=== PATIENT | male | born 1980 | race Caucasian/White ===

== ENCOUNTER 2019-08-01 11:23 | Emergency (ER) | payer MEDICAID, SELFPAY ==
[~2019-08-01] VITALS: Ht 177.8 cm; Wt 74.4 kg
[2019-08-01] MEDS ORDERED: ACET-908 PO (11:31)
[2019-08-01 12:19] LABS: BASO % 0.3 % (0.0-1.0); EOS # 0.1 10^3/uL (0.0-0.5); EOS % 0.6 % (0.0-3.0); HEMATOCRIT 43.3 % (42.0-52.0); LYMPH # 1.4 10^3/uL (1.5-5.0); LYMPH % 14.4 % (24.0-44.0); MEAN CORPUSCULAR HEMOGLOBIN 33.7 pg (27.0-33.0); MEAN CORPUSCULAR HGB CONC 34.6 g/dl (32.0-36.5); MEAN CORPUSCULAR VOLUME 97.3 fl (80.0-96.0); MONO # 0.6 10^3/uL (0.0-0.8); MONO % 6.4 % (0.0-5.0); NEUTROPHILS # 7.5 10^3/uL (1.5-8.5); NEUTROPHILS % 78.1 % (36.0-66.0); PLATELET COUNT, AUTOMATED 283 10^3/uL (150-450); RED BLOOD COUNT 4.45 10^6/uL (4.30-6.10); WHITE BLOOD COUNT 9.6 10^3/uL (4.0-10.0)
[2019-08-01] MEDS ORDERED: KETOROLAC 30 MG/ML VIAL (J1885) IM ONE (12:30)
[2019-08-01 13:08] LABS: CK-MB VALUE MASS 2.3 NG/ML (<3.6); CPK CREATINE PHOSPHOKINASE 184 U/L (39-308); MB/CK RELATIVE INDEX 1.25 (< OR =4); TROPONIN I < 0.02 NG/ML (< 0.10)
[2019-08-01] MEDS ORDERED: AUGM875T28 PO (13:28)
[2019-08-01 13:35] VITALS: BP 131/82
--- NOTE | 2019-08-01 19:07 | ECGEPIP ---
[facility] - ED Test Date: 2019-08-01 Pat Name: ISAIAS BRITTON Department: Room: - Gender: Male [employer] Supervisor: : 1980 Requested By: TERA Phelps PA-C Order Number: [id number] Reading MD: Jose Luis Wallace Measurements Intervals [place] Rate: 77 P: 76 VA: 137 QRS: 48 QRSD: 94 T: 47 QT: 370 QTc: 421 Interpretive Statements SINUS RHYTHM WITH SINUS ARRHYTHMIA POSSIBLE LEFT VENTRICULAR HYPERTROPHY BENIGN EARLY REPOLARIZATION SIMILAR TO 02/07/16 Electronically Signed on 08-01-2019 19:07:25 EDT by Jose Luis Wallace
== END 2019-08-01 13:36 | disposition home or self-care (01) ==
LOC: M ED 11:23
DX: H65.02 Acute serous otitis media, left ear (principal); K02.9 Dental caries, unspecified; R68.84 Jaw pain; I49.3 Ventricular premature depolarization; F17.210 Nicotine dependence, cigarettes, uncomplicated; F41.9 Anxiety disorder, unspecified
CPT/HCPCS: 80047; 82550; 82553; 84484; 85025; 93005; 99284; J1885

== ENCOUNTER 2019-08-28 18:33 | Emergency (ER) | payer OTHER, SELFPAY ==
[~2019-08-28] VITALS: Ht 175.3 cm; Wt 76.1 kg
[2019-08-28 18:33] VITALS: BP 137/79
[~2019-08-28 18:33] MED LIST: ACET-908 PO; AUGM875T28 PO
[2019-08-28] MEDS ORDERED: NORCO, ANEXSIA 5/325MG TABLET (HYDROcodone/ACETAMINOPHEN) PO ONE (21:15)
[2019-08-28] MEDS ORDERED: ceFAZolin SOD 2 GM in IV 1 EA IV ONE (21:15)
[2019-08-28] MEDS ORDERED: ADACEL/BOOSTRIX VACCINE (DIPHTH/PERTUSS/ACELL/TETANUS)0.5ML SYR (90715) IM ONE (21:15)
[2019-08-28] MEDS ORDERED: KEFL500C17 PO (22:53)
[2019-08-28] MEDS ORDERED: NORC1TAB7 PO (22:53)
[2019-08-28] MEDS ORDERED: NORCO 5/325MG TABLET (BULK FOR ED) PO ONE (23:00)
--- NOTE | 2019-08-29 07:52 | REP ---
Clinical: Crush injury. Technique: AP, lateral, bilateral oblique views of the right first digit. Findings: Comminuted fracture of the terminal tuft consistent with crush injury. No subcutaneous emphysema or foreign body identified. Impression: Fracture of the terminal tuft. Electronically Signed by Kee Sparks MD 08/29/2019 07:43 A
== END 2019-08-28 23:25 | disposition home or self-care (01) ==
LOC: M ED 18:33
DX: S62.631B Displaced fracture of distal phalanx of left index finger, initial encounter for open fracture (principal); W23.1XXA Caught, crushed, jammed, or pinched between stationary objects, initial encounter; Y92.69 Other specified industrial and construction area as the place of occurrence of the external cause; Y99.0 Civilian activity done for income or pay; F17.210 Nicotine dependence, cigarettes, uncomplicated
CPT/HCPCS: 73140; 90471; 90715; 96365; 99284; J0690

== ENCOUNTER 2020-11-10 14:10 | Emergency (ER) | payer OTHER, SELFPAY ==
[~2020-11-10] VITALS: Ht 175.3 cm; Wt 84.5 kg
[~2020-11-10 14:10] MED LIST changes: +KEFL500C17 PO; +NORC1TAB7 PO
--- OUTSIDE RECORDS SUMMARY | 2020-11-10 14:18 | CCD ---
Author Author [facility] Organization [facility] Address Unknown Phone Unavailable Support Name Relationship Address Phone [place] [address] UE Next Of Kin Unknown Unavailable FLORIDARACHELLE Next Of Kin [address] [place] [address] SMC* Next Of Kin [address] [place] [address] Gill DONNELLY Next Of Kin [address] [facility] [address] [place] [address] Re-disclosure Warning The records that you are about to access may contain information from federally-assisted alcohol or drug abuse programs. If such information is present, then the following federally mandated warning applies: This information has been disclosed to you from records protected by federal confidentiality rules (42 CFR part 2). The federal rules prohibit you from making any further disclosure of this information unless further disclosure is expressly permitted by the written consent of the person to whom it pertains or as otherwise permitted by 42 CFR part 2. A general authorization for the release of medical or other information is NOT sufficient for this purpose. The Federal rules restrict any use of the information to criminally investigate or prosecute any alcohol or drug abuse patient.The records that you are about to access may contain highly sensitive health information, the redisclosure of which is protected by Article 27-F of the [place] State Public Health law. If you continue you may have access to information: Regarding HIV / AIDS; Provided by facilities licensed or operated by the [facility] Office of Mental Health; or Provided by the [facility] Office for People With Developmental Disabilities. If such information is present, then the following [facility] mandated warning applies: This information has been disclosed to you from confidential records which are protected by state law. State law prohibits you from making any further disclosure of this information without the specific written consent of the person to whom it pertains, or as otherwise permitted by law. Any unauthorized further disclosure in violation of state law may result in a fine or alf sentence or both. A general authorization for the release of medical or other information is NOT sufficient authorization for further disc losure. Family History Family Member Name Family Member Gender Family Member Status Date o f Status Description Data Source(s) Unknown Unknown Encounters Encounter Providers Location Date Indications Data Source(s ) Outpatient 09/11/2019 03:23:00 PM [facility] Insurance Providers Payer name Policy type / Coverage type Policy ID Covered alliance party ID Covered alliance party's relationship to garg Policy Garg Plan Information [employer] SP O UNAVAILABLE UNAVAILA BLE SELF PAY ONLY [id number] SP [id number] WORKERS COMPENSATION [id number] SP [id number] [facility] [id number] SP [id number] MEDICAID HEA [id number] S [id number] MEDICAID [id number] SP [id number] [facility] COMM[facility] PL[facility] MCDO [id number] SP [id number] [facility] O [id number] S [id number] [facility] MANAG[facility] [id number] SP [id number] [facility] Health Maintenance Organization (HMO) Self
--- OUTSIDE RECORDS SUMMARY | 2020-11-10 15:31 | CCD ---
Author Author [facility] Organization [facility] Address Unknown Phone Unavailable Support Name Relationship Address Phone [place] [address] UE Next Of Kin Unknown Unavailable FLORIDARACHELLE Next Of Kin [address] [place] [address] SMC* Next Of Kin [address] [place] [address] Gill DONNELLY Next Of Kin [address] [facility] [address] [place] [address] Re-disclosure Warning The records that you are [...] is protected by Article 27-F of the [place] State Public Health law. If you continue you may have access to information: Regarding HIV / AIDS; Provided by facilities licensed or operated by the [facility] Office of Mental Health; or Provided by the [facility] Office for People With Developmental Disabilities. If such information is present, then the following [facility] mandated warning applies: This information has [...] law may result in a fine or fci sentence or both. A general authorization for the release of medical or other information is NOT sufficient authorization for further disc losure. Family History Family Member Name Family Member Gender Family Member Status Date o f Status Description Data Source(s) Unknown Unknown Insurance Providers Payer name Policy type / Coverage type Policy ID Covered democrat ID Covered democrat's relationship to garg Policy Garg Plan Information SRIDHAR [id number] SP [id number] [place] [employer] SP O UNAVAILABLE UNAVAILA BLE SELF PAY ONLY [id number] SP [id number] OTHER WORKERS COMPENSATION [id number] SP [id number] [facility] [id number] SP [id number] MEDICAID HEA [id number] MEDICAID [id number] SP [id number] [employer] COMMUNITY PLAN MCDHMO [id number] SP [id number] [facility] O [id number] S [id number] [facility] MANAGEMENT [facility] [id number] SP [id number] [facility] Health Maintenance Organization (HMO) Self
[2020-11-10 16:45] VITALS: BP 150/87
== END 2020-11-10 16:57 | disposition home or self-care (01) ==
LOC: M ED 14:10
DX: U07.1 COVID-19 (principal); F17.200 Nicotine dependence, unspecified, uncomplicated

== ENCOUNTER 2022-02-27 22:15 | Emergency (ER) | payer SELFPAY ==
[~2022-02-27] VITALS: Ht 175.3 cm; Wt 81.8 kg
[~2022-02-27 22:15] MED LIST changes: -ACET-908 PO; +ACET-910 PO
[2022-02-27 22:17] VITALS: BP 126/84
== END 2022-02-28 00:15 | disposition left against medical advice (07) ==
LOC: M ED 22:15
DX: Z53.21 Procedure and treatment not carried out due to patient leaving prior to being seen by health care provider (principal)

== ENCOUNTER 2022-09-07 10:27 | Inpatient (IN) | payer SELFPAY ==
[~2022-09-07] VITALS: Ht 175.3 cm; Wt 81.8 kg
[2022-09-07 11:27] LABS: HEMATOCRIT 41.7 % (42.0-52.0); HEMOGLOBIN 14.2 g/dl (13.5-17.5); MEAN CORPUSCULAR HEMOGLOBIN 31.9 pg (27.0-33.0); MEAN CORPUSCULAR HGB CONC 34.1 g/dl (32.0-36.5); MEAN CORPUSCULAR VOLUME 93.7 fl (80.0-96.0); PLATELET COUNT, AUTOMATED 338 10^3/uL (150-450); RED BLOOD COUNT 4.45 10^6/uL (4.30-6.10); WHITE BLOOD COUNT 6.6 10^3/uL (4.0-10.0)
[2022-09-07 12:12] LABS: RSV AMPLIFICATION NEGATIVE (NEGATIVE)
[2022-09-07 12:17] LABS: ACETAMINOPHEN LEVEL < 2.0 UG/ML (10.0-30.0); ALBUMIN 3.9 GM/DL (3.2-5.2); ALT/SGPT 46 U/L (12-78); BILIRUBIN,DIRECT 0.1 MG/DL (0.0-0.2); BILIRUBIN,TOTAL 0.5 MG/DL (0.2-1.0); BLOOD UREA NITROGEN 12 MG/DL (7-18); CALCIUM LEVEL 9.4 MG/DL (8.5-10.1); CARBON DIOXIDE LEVEL 26 MEQ/L (21-32); CHLORIDE LEVEL 101 MEQ/L (98-107); CREATININE FOR GFR 0.72 MG/DL (0.70-1.30); ETHYL ALCOHOL (ETHANOL) 0.004 % (0.000-0.010); GLOMERULAR FILTRATION RATE > 60.0 (>60); GLUCOSE, FASTING 87 MG/DL (70-100); POTASSIUM SERUM 4.1 MEQ/L (3.5-5.1); SALICYLATE LEVEL 2.6 MG/DL (5.0-30.0); SODIUM LEVEL 136 MEQ/L (136-145); TOTAL PROTEIN 7.4 GM/DL (6.4-8.2)
[2022-09-07 12:18] LABS: AMPHETAMINES LEVEL URINE POSITIVE (NEGATIVE); BARBITURATES URINE NEGATIVE (NEGATIVE); BENZODIAZEPINES URINE NEGATIVE (NEGATIVE); CANNABINOIDS URINE NEGATIVE (NEGATIVE); COCAINE METABOLITE URINE NEGATIVE (NEGATIVE); METHADONE URINE NEGATIVE (NEGATIVE); OPIATES URINE NEGATIVE (NEGATIVE); PHENCYCLIDINE URINE NEGATIVE (NEGATIVE)
[2022-09-07] MEDS ORDERED: NICOTINE 21MG/24HR 1 EA TRANSDERMAL TD ONE (12:45)
[2022-09-07] MEDS ORDERED: HOME MED LIST COMPLETE! XX SCH (13:15)
[2022-09-08] MEDS ORDERED: MOM 30ML SUSPENSION UDC PO PRN (13:40)
[2022-09-08] MEDS ORDERED: ACETAMINOPHEN TAB 650MG DOSE (2X325MG) PO PRN (13:40)
[2022-09-08] MEDS ORDERED: traZODone 50 MG TAB PO PRN (13:40)
[2022-09-08] MEDS ORDERED: OLANZapine ORAL DISINTEGRATING TAB 5MG PO PRN (13:40)
[2022-09-08] MEDS ORDERED: MAALOX 30 ML SUSP *UDC PO PRN (13:40)
[2022-09-08 17:44] VITALS: BP 125/80
[2022-09-08] MEDS: NICOTINE 21MG/24HR 1 EA TRANSDERMAL TD PRN (19:07)
[2022-09-09 06:09] VITALS: BP 131/78
[2022-09-09] MEDS ORDERED: OLANZapine ORAL DISINTEGRATING TAB 5MG PO PRN (09:10)
[2022-09-09] MEDS: OLANZapine 5 MG TAB PO SCH ×2 (09:18→21:21)
[2022-09-09 16:12] VITALS: BP 112/59
[2022-09-09] MEDS: NICOTINE 21MG/24HR 1 EA TRANSDERMAL TD PRN (21:25)
[2022-09-10 06:36] VITALS: BP 116/67
[2022-09-10] MEDS: OLANZapine 5 MG TAB PO SCH ×2 (09:32→22:03)
[2022-09-10 16:10] VITALS: BP 113/66
[2022-09-11 06:32] VITALS: BP 148/80
[2022-09-11] MEDS: OLANZapine 5 MG TAB PO SCH ×2 (08:57→20:58)
[2022-09-11] MEDS: NICOTINE 21MG/24HR 1 EA TRANSDERMAL TD PRN (08:58)
[2022-09-11 16:08] VITALS: BP 119/72
[2022-09-12 06:30] VITALS: BP 126/72
[2022-09-12] MEDS: OLANZapine 5 MG TAB PO SCH (09:00)
[2022-09-12] MEDS: NICOTINE 21MG/24HR 1 EA TRANSDERMAL TD PRN (09:03)
[2022-09-12] MEDS ORDERED: OLAN1TAB16 PO (09:29)
[2022-09-12] MEDS ORDERED: NICO21PAT TD (09:29)
== END 2022-09-12 11:45 | disposition home or self-care (01) | DRG 751 ==
LOC: M ED 10:27 → M ED INP 09-08 13:40 → M PSY 09-08 16:49
PROVIDERS: ADMIT Student in an Organized Health Care Education/Training Program; ATTEND Psychiatry & Neurology Psychiatry
DX: F29 Unspecified psychosis not due to a substance or known physiological condition (principal); F12.90 Cannabis use, unspecified, uncomplicated; F17.200 Nicotine dependence, unspecified, uncomplicated; F15.90 Other stimulant use, unspecified, uncomplicated; F19.94 Other psychoactive substance use, unspecified with psychoactive substance-induced mood disorder; J45.909 Unspecified asthma, uncomplicated

== ENCOUNTER 2022-12-27 13:36 | Emergency (ER) | payer MEDICAID, OTHER, SELFPAY ==
[~2022-12-27] VITALS: Ht 175.3 cm; Wt 84.1 kg
[~2022-12-27 13:36] MED LIST changes: +NICO21PAT TD; +OLAN1TAB16 PO
[2022-12-27 14:52] LABS: HEMATOCRIT 43.6 % (42.0-52.0); HEMOGLOBIN 14.5 g/dl (13.5-17.5); MEAN CORPUSCULAR HGB CONC 33.3 g/dl (32.0-36.5); MEAN CORPUSCULAR VOLUME 93.4 fl (80.0-96.0); PLATELET COUNT, AUTOMATED 389 10^3/uL (150-450); RED BLOOD COUNT 4.67 10^6/uL (4.30-6.10); WHITE BLOOD COUNT 8.4 10^3/uL (4.0-10.0)
[2022-12-27 15:19] LABS: BARBITURATES URINE NEGATIVE (NEGATIVE); BENZODIAZEPINES URINE NEGATIVE (NEGATIVE); COCAINE METABOLITE URINE NEGATIVE (NEGATIVE); METHADONE URINE NEGATIVE (NEGATIVE)
[2022-12-27 15:20] LABS: CANNABINOIDS URINE NEGATIVE (NEGATIVE); OPIATES URINE NEGATIVE (NEGATIVE); PHENCYCLIDINE URINE NEGATIVE (NEGATIVE)
[2022-12-27 15:22] LABS: AMPHETAMINES LEVEL URINE POSITIVE (NEGATIVE); ETHYL ALCOHOL (ETHANOL) 0.005 % (0.000-0.010)
[2022-12-27 15:23] LABS: ACETAMINOPHEN LEVEL < 2.0 UG/ML (10.0-20.0); ALBUMIN 3.8 G/DL (3.2-5.2); ALKALINE PHOSPHATASE 121 U/L (46-116); ALT/SGPT 34 U/L (7.0-40); AST/SGOT 29 U/L (<34); BILIRUBIN,DIRECT 0.1 MG/DL (<0.4); BILIRUBIN,TOTAL 0.4 MG/DL (0.3-1.2); BLOOD UREA NITROGEN 10 MG/DL (9-23); CALCIUM LEVEL 9.5 MG/DL (8.5-10.1); CARBON DIOXIDE LEVEL 25 MMOL/L (20-31); CHLORIDE LEVEL 104 MMOL/L (98-107); CREATININE FOR GFR 0.91 MG/DL (0.70-1.30); GLOMERULAR FILTRATION RATE > 60.0 (>60); GLUCOSE, FASTING 107 MG/DL (60-100); POTASSIUM SERUM 4.7 MMOL/L (3.5-5.1); SALICYLATE LEVEL < 3.0 MG/DL (<30); SODIUM LEVEL 138 MMOL/L (136-145); TOTAL PROTEIN 7.2 G/DL (5.7-8.2)
[2022-12-27 15:25] LABS: THYROID STIMULATING HORMONE 1.625 uIU/ML (0.55-4.78)
[2022-12-27] MEDS ORDERED: HOME MED LIST COMPLETE! XX SCH (22:45)
[2022-12-28] MEDS ORDERED: NICOTINE 21MG/24HR 1 EA TRANSDERMAL TD ONE (01:05)
[2022-12-28 12:47] VITALS: BP 135/82
== END 2022-12-28 13:40 | disposition home or self-care (01) ==
LOC: M ED 13:36
DX: F19.129 Other psychoactive substance abuse with intoxication, unspecified (principal); F23 Brief psychotic disorder

== ENCOUNTER 2023-06-30 19:02 | Emergency (ER) | payer MEDICAID, OTHER ==
[~2023-06-30] VITALS: Ht 175.3 cm; Wt 87.0 kg
[2023-06-30 19:02] VITALS: BP 146/98; TEMP 98.3; O2SAT 97
== END 2023-06-30 21:09 | disposition left against medical advice (07) ==
LOC: M ED 19:02
DX: Z53.21 Procedure and treatment not carried out due to patient leaving prior to being seen by health care provider (principal)

== ENCOUNTER 2024-10-29 10:56 | Emergency (ER) | payer OTHER ==
[~2024-10-29] VITALS: Ht 175.3 cm; Wt 79.2 kg
[2024-10-29 13:06] LABS: BASO % 0.7 % (0.0-1.0); EOS # 0.2 10^3/uL (0.0-0.5); HEMATOCRIT 53.5 % (42.0-52.0); HEMOGLOBIN 18.4 g/dl (13.5-17.5); LYMPH # 1.5 10^3/uL (1.5-5.0); LYMPH % 34.7 % (24.0-44.0); MEAN CORPUSCULAR HEMOGLOBIN 32.6 pg (27.0-33.0); MEAN CORPUSCULAR HGB CONC 34.4 g/dl (32.0-36.5); MEAN CORPUSCULAR VOLUME 94.7 fl (80.0-96.0); MONO # 0.6 10^3/uL (0.0-0.8); MONO % 13.4 % (2.0-8.0); NEUTROPHILS % 46.7 % (36.0-66.0); PLATELET COUNT, AUTOMATED 273 10^3/uL (150-450); RED BLOOD COUNT 5.65 10^6/uL (4.30-6.10); WHITE BLOOD COUNT 4.2 10^3/uL (4.0-10.0)
[2024-10-29] MEDS: ACETAMINOPHEN 500 MG TAB PO ONE (13:10)
[2024-10-29] MEDS: BENZONATATE 100MG CAPSULE PO ONE (13:11)
[2024-10-29 13:41] LABS: ALBUMIN 3.7 G/DL (3.2-5.2); ALKALINE PHOSPHATASE 101 U/L (40-129); ALT/SGPT 89 U/L (7.0-40); AST/SGOT 39 U/L (<34); BILIRUBIN,DIRECT 0.2 MG/DL (<0.4); BILIRUBIN,TOTAL 0.6 MG/DL (0.3-1.2); BLOOD UREA NITROGEN 13 MG/DL (9-23); CARBON DIOXIDE LEVEL 34 MMOL/L (20-31); CHLORIDE LEVEL 99 MMOL/L (98-107); CK-MB VALUE MASS < 1.0 NG/ML (<3.6); CREATININE FOR GFR 0.82 MG/DL (0.70-1.30); GLOMERULAR FILTRATION RATE > 60.0 (>60); GLUCOSE, FASTING 104 MG/DL (60-100); POTASSIUM SERUM 4.7 MMOL/L (3.5-5.1); SODIUM LEVEL 140 MMOL/L (136-145); TOTAL PROTEIN 8.1 G/DL (5.7-8.2)
[2024-10-29 13:44] LABS: CPK CREATINE PHOSPHOKINASE 58 U/L (46-171); MB/CK RELATIVE INDEX 1.72 (< OR =4)
[2024-10-29 14:04] VITALS: O2SAT 98
[2024-10-29 14:42] LABS: CK-MB VALUE MASS < 1.0 NG/ML (<3.6); CPK CREATINE PHOSPHOKINASE 51 U/L (46-171); MB/CK RELATIVE INDEX 1.96 (< OR =4)
[2024-10-29] MEDS ORDERED: PROA1AER2 INH (14:55)
[2024-10-29 15:00] VITALS: BP 104/72; TEMP 97.3; O2SAT 98
== END 2024-10-29 15:06 | disposition home or self-care (01) ==
LOC: M ED 10:56
DX: J09.X2 Influenza due to identified novel influenza A virus with other respiratory manifestations (principal); R06.02 Shortness of breath; I45.81 Long QT syndrome; J45.909 Unspecified asthma, uncomplicated; F41.9 Anxiety disorder, unspecified; F17.210 Nicotine dependence, cigarettes, uncomplicated; Z79.51 Long term (current) use of inhaled steroids